=== PATIENT | female | born 1955 | race Caucasian/White ===

== ENCOUNTER 2020-10-18 23:40 | Emergency (ER) | payer MEDICARE, OTHER ==
[2020-10-18] MEDS ORDERED: Sodium Chloride 0.9% 10 ML Syringe FLUSH PRN (23:51)
--- NOTE | 2020-10-18 23:51 | EDM.PDOC ---
ED HPI GENERAL MEDICAL PROBLEM - General Chief Complaint: Abdominal Pain Stated Complaint: RIGHT ABD PAIN Time Seen by Provider: 10/18/20 23:49 Source of Information: Reports: Patient History Limitations: Reports: No Limitations - History of Present Illness INITIAL COMMENTS - FREE TEXT/NARRATIVE: Melonie Melgar is a 65 y/o female that presents ambulatory via triage during the covid pandemic with rlq pain. She notes that approximate 24 hours ago she was at home when awokened with constant and persistent, right lower quadrant abdominal pain. Since then pain has persisted but is better with Tylenol and now mild. pain Has not migrated and is located in the right lower quadrant. She reports feelings of mild malaise and generalized weakness. She had a normal appetite. she has had no fever, headache, runny nose, sore throat, cough, change in taste or smell. No diarrhea. She has not had Covid and she is not Covid vaccinated. Patient reports no urinary symptoms and normal stools. She has had a remote colonoscopy many years ago by her report that was normal. She is not anticoagulated. not on steroids. no chest pain/discomfort. no neck pain. no jaw pain. no back pain. normal stools. no urine sx. pain worse if laying supine/moving/breathing in rlq - Related Data Allergies Allergy/AdvReac Type Severity Reaction Status Date / Time Penicillins Allergy Anaphylactic Verified 10/18/20 23:49 Shock Home Meds: Home Meds Escitalopram [Lexapro] 1 tab PO DAILY 10/18/20 [History] Multivitamin/Iron/Folic Acid [Centrum Women Tablet] 1 tab PO DAILY 10/18/20 [History] Social & Family History - Living Situation & Occupation Social History Comment: in past year. likes to walk. ED ROS GENERAL - Review of Systems Review Of Systems: See Below (Patient does note in 2018 she had "fluid drained" she thinks was from her liver in [place]. denies any history of cancer or paracentesis. All other 10 negative.) Constitutional: Reports: Malaise. Denies: Fever, Chills, Weight Loss HEENT: Reports: No Symptoms Respiratory: Reports: No Symptoms, Wheezing. Denies: Pleuritic Chest Pain, Cough Cardiovascular: Reports: No Symptoms. Denies: Chest Pain, Edema, Palpitations Endocrine: Reports: No Symptoms GI/Abdominal: Reports: Abdominal Pain, Stool Incontinence. Denies: Black Stool, Diarrhea, Distension, Nausea, Vomiting : Reports: No Symptoms. Denies: Flank Pain, Frequency Musculoskeletal: Reports: No Symptoms Skin: Reports: No Symptoms Neurological: Reports: No Symptoms Psychiatric: Reports: No Symptoms Hematologic/Lymphatic: Reports: No Symptoms Immunologic: Reports: No Symptoms ED EXAM, GI/ABD - Physical Exam Exam: See Below Exam Limited By: No Limitations General Appearance: Alert Eyes: Bilateral: Normal Appearance Ears: Hearing Grossly Normal Nose: Normal Inspection Head: Normocephalic Neck: Non-Tender Respiratory/Chest: No Respiratory Distress, Lungs Clear, Normal Breath Sounds, No Accessory Muscle Use. No: Splinting Cardiovascular: Normal Peripheral Pulses, Regular Rate, Rhythm, No JVD, No Murmur, No Rub GI/Abdominal Exam: Normal Bowel Sounds, Soft, No Mass, Tender (rlq near mcburney and right mid quadrant. no ruq pain. neg bird. no rebound. no abd wall rash. no abd hernia. ) (Female) Exam: Other (no flank tenderness) Back Exam: No: Paraspinal Tenderness Extremities: Normal Inspection, Normal Range of Motion, Non-Tender, No Pedal Edema. No: Pedal Edema Neurological: Alert, Oriented, Normal Cognition, Normal Gait, No Motor/Sensory Deficits Psychiatric: Normal Affect Skin Exam: Warm, Dry, Normal Color, No Rash, Other (tanned skin) Lymphatic: No Adenopathy Course - Vital Signs Text/Narrative:: Patient underwent ED history, physical examination. Patient deferred on pain medications noting she took Tylenol at home. Patient has acute right side abdominal pain located McBurney's point. She however has a good appetite, no fever. She has no Covid symptoms. She is not covid vaccinated. Differential is broad and includes appendicitis albeit somewhat atypical presentation with acute onset of pain. Intestinal volvulus, bowel ischemia. Low suspicion for abdominal aortic aneurysm. Low suspicion for pelvic infection. Certainly could be ovarian cyst or hemorrhagic cyst. Atypical presentation of right upper quadrant pathology is a consideration while she has no upper quadrant pain on exam. Doubt this is an intrathoracic process. diverticulitis is possible. no abd rash or hernia on exam. no back or blank pain to suggest renal colic or UTI sx by history. Epiploic appendagitis would clinically fit her presentation. Patient deferred on pain medications. CBC reviewed. Mild leukocytosis. Creatinine 1.5. CT with contrast recommended to further ascertain the cause of her right lower quadrant pain. Patient is normal AST ALT and bilirubin 0035 AM. Patient notes persistent right lower quadrant pain. I reviewed the indication for CT scan and recommend IV hydration after CT scan. Patient voiced understanding. 0055: Patient rechecked. I reviewed the CT scan raw images in the CT suite, my impression: multiple hepatic cystic lesions of various sizes and impressively large septated cystic mass of the right upper quadrant that extends into the right lq. the right kidney is displace medially as a result of this. Patient has been reassessed she does note that in 2018 in [place] she had "fluid drained from her liver" she notes she was told she would "have to live with this". She denies a history of cancer or paracentesis. She denies jaundice. She reports she has gained approximate 5 pounds over a few months and does feel generally distended. 0200: patient resting comfortable. 2nd litre NS infusing. awaiting CT scan results 0503: CT: Abdomen pelvis with IV contrast faxed copy from consulting radiologist. Findings: In the abdomen, the right lobe of the liver has largely been replaced with a dominant cyst measuring 17.9 x 13.0 x 19.9 cm. Several other moderate cysts are present more superior to the dominant cyst measuring up to 8.5 cm in diameter. There are numerous smaller cysts scattered throughout the rest of the liver. The cyst in the right lobe of the liver moderately enlarge liver, which measures up to 25.4 cm in length nearly reaching the superior iliac crest the findings are that of polycystic liver disease. A few calcifications are seen adjacent to the cyst in the superior portion of the right lobe of the liver. There is no sign of any solid hepatic mass. Normal CT of the pelvis with contrast. Inferior and medial displacement of the otherwise normal-appearing right kidney. Reading per Austin Tobias MD 4448: Surgery paged for Consult, Dr. Rojas: Ddx, recommendations/treatment reviewed. No emergent surgical indications at this time. Consider consult at specialty center, ?[facility] ? [place] ? [place]- where patient lives. MDM: Janelle Melgar is a pleasant female presents with 24 hours of acute onset of right lower quadrant pain she reports pain is worse if she lays supine and has been associated with generalized malaise. She has a interesting CT findings as noted above. Patient's white count is normal. Her appetite is normal and her symptoms began acutely making appendicitis possible but much less likely due to the duration of her symptomatology and lack of inflammatory changes but appendix by CT scan. Patient has no signs of hepatic injury by laboratory testing. I have excluded life threats of vascular catastrophe. Her pain is well controlled and not suggestive of it perforated viscus or closed-loop obstruction/volvulus. The etiology of her pain is however unknown. She remotely has had what sounds like hepatic cyst drained approximately 3 years ago in the [place] area and she reports being told at the time that her sister said that she would have to live with. Patient clinically does not have signs of ischemia or emergent life threats. I cannot exclude fully an atypical or early presentation of appendicitis or other inflammatory processes. Patient is done remarkably well in ER with lack of need for pain medications she is pain with rest comfortably with use of Tylenol prior to arrival in the ER. Her abdominal examination serially did not show peritoneal signs and she has ongoing good appetite. 0541: patient rechecked. ED workup and CT/covid test reviewed. patient notes she has plans to return to [place] tomorrow, where she resides for the winter months. 0550: I discussed disposition with the patient. At this time patient would like discharge with a prescription for pain -if needed before she goes to bed. Patient understands the differential which does include atypical or early appendicitis. Patient will return to the emergency department if progressive worsening or not improving next 16-24 hrs for repeat assessment. She may also require transfer to a larger center that has GI capacity/ specialty capacity for the hepatic cyst. Patient voiced understanding of such and would like be to be discharged home at this time. A copy of today's CT results on CD and written paperwork/copy of fax is provided for the patient as she requested for her primary care physician as well. She also considered transfer to [facility] today, and deferred. rx: norco #10 1 po qhs Last Recorded V/S: Last Vital Signs Temp 36.1 C 10/19/20 05:31 Pulse 69 10/19/20 05:31 Resp 16 10/19/20 05:31 BP 106/76 09/07/21 05:31 Pulse Ox 96 10/19/20 05:31 - Orders/Labs/Meds Orders: Active Orders 24 hr Category Date Time Status Sodium Chloride 0.9% [Saline Flush] Med 10/18/20 23:51 Active 10 ml FLUSH ASDIRECTED PRN Saline Lock Insert [OM.PC] Stat Oth 10/18/20 23:51 Ordered Medication Orders Sodium Chloride (Sodium Chloride 0.9% 10 Ml Syringe) 10 ml FLUSH ASDIRECTED PRN PRN Reason: Keep Vein Open Last Admin: 10/19/20 00:23 Dose: 10 ml Documented by: VARGAS Labs: Laboratory Tests 10/18/20 10/18/20 10/19/20 Range/Units 23:59 23:59 00:20 WBC 11.8 H (4.5-11.0) K/uL RBC 4.89 (3.30-5.50) M/uL Hgb 13.8 (12.0-15.0) g/dL Hct 43.4 (36.0-48.0) % MCV 89 (80-98) fL MCH 28 (27-31) pg MCHC 32 (32-36) % Plt Count 221 (150-400) K/uL Neut % (Auto) 67.9 H (36-66) % Lymph % (Auto) 16.5 L (24-44) % White % (Auto) 14.0 H (2-6) % Eos % (Auto) 1.3 L (2-4) % Baso % (Auto) 0.3 (0-1) % Sodium 137 L (140-148) mmol/L Potassium 4.2 (3.6-5.2) mmol/L Chloride 102 (100-108) mmol/L Carbon Dioxide 26 (21-32) mmol/L Anion Gap 13.2 (5.0-14.0) mmol/L BUN 23 H (7-18) mg/dL Creatinine 1.5 H (0.6-1.0) mg/dL Est Cr Clr Drug Dosing 28.78 mL/min Estimated GFR (MDRD) 35 L (>60) Glucose 97 (74-106) mg/dL Calcium 9.0 (8.5-10.1) mg/dL Total Bilirubin 0.4 (0.2-1.0) mg/dL AST 24 (15-37) U/L ALT 44 (12-78) U/L Alkaline Phosphatase 143 H (46-116) U/L Total Protein 7.1 (6.4-8.2) g/dL Albumin 3.5 (3.4-5.0) g/dL Globulin 3.6 H (2.3-3.5) g/dL Albumin/Globulin Ratio 1.0 L (1.2-2.2) Urine Color Yellow (YELLOW) Urine Appearance Clear (CLEAR) Urine pH 5.5 (5.0-8.0) Ur Specific [place] 1.025 (1.008-1.030) Urine Protein Negative (NEGATIVE) mg/dL Urine Glucose (UA) Negative (NEGATIVE) mg/dL Urine Ketones Negative (NEGATIVE) mg/dL Urine Occult Blood Negative (NEGATIVE) Urine Nitrite Negative (NEGATIVE) Urine Bilirubin Negative (NEGATIVE) Urine Urobilinogen 0.2 (0.2-1.0) EU/dL Ur Leukocyte Esterase Trace H (NEGATIVE) Urine RBC 0-5 (0-5) Urine WBC 0-5 (0-5) Ur Epithelial Cells Few Amorphous Sediment Not seen Urine Bacteria Few Urine Mucus Not seen SARS CoV-2 RNA Rapid RHONDA 10/19/20 Range/Units 01:00 WBC (4.5-11.0) K/uL RBC (3.30-5.50) M/uL Hgb (12.0-15.0) g/dL Hct (36.0-48.0) % MCV (80-98) fL MCH (27-31) pg MCHC (32-36) % Plt Count (150-400) K/uL Neut % (Auto) (36-66) % Lymph % (Auto) (24-44) % White % (Auto) (2-6) % Eos % (Auto) (2-4) % Baso % (Auto) (0-1) % Sodium (140-148) mmol/L Potassium (3.6-5.2) mmol/L Chloride (100-108) mmol/L Carbon Dioxide (21-32) mmol/L Anion Gap (5.0-14.0) mmol/L BUN (7-18) mg/dL Creatinine (0.6-1.0) mg/dL Est Cr Clr Drug Dosing mL/min Estimated GFR (MDRD) (>60) Glucose (74-106) mg/dL Calcium (8.5-10.1) mg/dL Total Bilirubin (0.2-1.0) mg/dL AST (15-37) U/L ALT (12-78) U/L Alkaline Phosphatase (46-116) U/L Total Protein (6.4-8.2) g/dL Albumin (3.4-5.0) g/dL Globulin (2.3-3.5) g/dL Albumin/Globulin Ratio (1.2-2.2) Urine Color (YELLOW) Urine Appearance (CLEAR) Urine pH (5.0-8.0) Ur Specific [place] (1.008-1.030) Urine Protein (NEGATIVE) mg/dL Urine Glucose (UA) (NEGATIVE) mg/dL Urine Ketones (NEGATIVE) mg/dL Urine Occult Blood (NEGATIVE) Urine Nitrite (NEGATIVE) Urine Bilirubin (NEGATIVE) Urine Urobilinogen (0.2-1.0) EU/dL Ur Leukocyte Esterase (NEGATIVE) Urine RBC (0-5) Urine WBC (0-5) Ur Epithelial Cells Amorphous Sediment Urine Bacteria Urine Mucus SARS CoV-2 RNA Rapid RHONDA Negative Meds: Medications Generic Name Dose Route Start Last Admin Trade Name Freq PRN Reason Stop Dose Admin Sodium Chloride 10 ml 10/18/20 23:51 10/19/20 00:23 Sodium Chloride 0.9% 10 Ml Syringe FLUSH 10 ml ASDIRECTED PRN Administration Keep Vein Open Discontinued Medications Generic Name Dose Route Start Last Admin Trade Name Freq PRN Reason Stop Dose Admin Sodium Chloride 1,000 mls @ 500 mls/hr 10/19/20 00:15 Normal Saline IV ASDIRECTED JAMAL Sodium Chloride 1,000 mls @ 1,000 mls/hr 10/19/20 00:20 10/19/20 00:22 Normal Saline IV 10/19/20 01:19 1,000 mls/hr ONETIME ONE Administration Sodium Chloride 75 mls @ 3 mls/sec 10/19/20 00:21 10/19/20 00:41 Normal Saline IV 10/19/20 00:22 3 mls/sec ASDIRECTED STA Administration Sodium Chloride 1,000 mls @ 999 mls/hr 10/19/20 01:39 10/19/20 01:47 Normal Saline IV 10/19/20 02:39 999 mls/hr ONETIME ONE Administration Iopamidol 117 ml 10/19/20 00:20 10/19/20 00:40 Iopamidol 612 Mg/Ml 150 Ml Bottle IV 10/19/20 00:21 117 ml . DIRECTED STA Administration Departure - Departure Time of Disposition: 05:54 Disposition: Home, Self-Care 01 Condition: Fair Clinical Impression: Abnormal CT of liver, Abdominal pain, Renal insufficiency, Lab test negative for COVID-19 virus, Hepatic cyst, Polycystic liver disease - Discharge Information *PRESCRIPTION DRUG MONITORING PROGRAM REVIEWED*: No *COPY OF PRESCRIPTION DRUG MONITORING REPORT IN PATIENT ANASTASIIA: No Instructions: Abdominal Pain, Adult, [id number] Referrals: PCP,None [Primary Care Provider] - 1 Day Forms: ED Department Discharge Additional Instructions: The cause of your abdominal pain is likely from your hepatic cysts or cyst rupture. Atypical presentation of appendicitis is also possible but less likely. Please return to the emergency department if you have uncontrolled pain, temperature above 100.4, vomiting or loss of appetite, or if you reconsider transfer (further evaluation). Recommend recheck in 16 to 24 hours. A copy of your CT scan on CD and copy of the written CT report has also been provided today. Your Covid test today was negative. Long-term you would benefit from aspiration of the large liver cyst or surgical intervention/GI consult. Please discuss this with your MD in follow up. Thank you for trusting us with your care today. Do not drive or drink alcohol with the prescription pain medications. Use stool softener to prevent constipation See attached prescription for [place]. Sepsis Event Note (ED) - Focused Exam Vital Signs: Vital Signs Temp Pulse Resp BP Pulse Ox 10/19/20 05:31 36.1 C 69 16 106/76 96 10/19/20 01:50 65 18 126/78 100 10/18/20 23:50 36.1 C 74 18 129/83 95 - My Orders Last 24 Hours: My Active Orders 10/18/20 23:51 Sodium Chloride 0.9% [Saline Flush] 10 ml FLUSH ASDIRECTED PRN Saline Lock Insert [OM.PC] Stat - Assessment/Plan Last 24 Hours: My Active Orders 10/18/20 23:51 Sodium Chloride 0.9% [Saline Flush] 10 ml FLUSH ASDIRECTED PRN Saline Lock Insert [OM.PC] Stat
[2020-10-19] MEDS ORDERED: Sodium Chloride 0.9% 1,000 ML IV SCH (00:15)
[2020-10-19] MEDS ORDERED: Sodium Chloride 0.9% 1,000 ML IV ONE ×2 (00:20→01:39)
[2020-10-19] MEDS ORDERED: Iopamidol 612 MG/ML 150 ML Bottle IV STA (00:20)
[2020-10-19] MEDS ORDERED: Sodium Chloride 0.9% 75 ML IV STA (00:21)
--- NOTE | 2020-10-19 01:53 | CRLCT ---
For Patients: As a result of the Century Cures Act, medical imaging exams and procedure reports are released immediately into your electronic medical record. You may view this report before your referring provider. If you have questions, please contact your health care provider. INDICATION: Right lower quadrant pain for 24 hours. Previous history of pacemaker for bladder control. COMPARISON: None available TECHNIQUE: CT examination of the abdomen and pelvis was performed with the uneventful intravenous administration of 117 cc of Isovue-300 while 3 mm thick axial sections were obtained from the lung bases through the pubic symphysis. Oral contrast was not administered. Please note that all CT scans at this facility use dose modulation, iterative reconstruction, and/or weight-based dosing when appropriate to reduce radiation dose to as low as reasonably achievable. FINDINGS: In the abdomen, the right lobe of the liver has been largely replaced with a dominant cyst measuring 17.9 x 13.0 x 19.9 centimeters. Several other moderate-sized cysts are present more superior to the dominant cyst, measuring up to 8.5 centimeters in diameter. There are numerous smaller cysts scattered throughout the rest of the liver. The cysts in the right lobe of the liver moderately enlarge liver, which measures 25.4 centimeters in length, nearly reaching the superior iliac crest. The findings are that of polycystic liver disease. A few calcifications are seen adjacent to the cysts in the superior portion of the right lobe of the liver. There is no sign of any solid hepatic mass. The spleen, pancreas, and adrenals are normal in appearance. The right kidney is displaced medially and inferiorly by the cysts in the right lobe of the liver. The kidneys are otherwise normal in appearance. The gallbladder is normal in appearance. The abdominal aorta is normal in caliber with no sign of dilatation. There is no sign of retroperitoneal mass or adenopathy. The stomach, loops of small bowel, and colon in the abdomen are normal in appearance. In the pelvis, the appendix is nonvisualized, but there is no sign of an inflammatory process in the area of the appendix. The loops of small bowel and colon in the pelvis are normal in appearance. The uterus and adnexal regions are normal in appearance. The urinary bladder is normal in appearance. There is no sign of pelvic or inguinal mass or adenopathy. There is no sign of free air or free fluid in the abdomen or pelvis. The lung bases are clear. There is moderate L2-3 disc degenerative disease. IMPRESSION: CT of the abdomen shows moderate enlargement of the right lobe of the liver by multiple cysts, with a dominant cyst measuring up to 19.9 centimeters in length. Numerous smaller cysts scattered throughout the rest of the liver, findings of polycystic liver disease. Inferior and medial displacement of the otherwise normal-appearing right kidney. Normal CT of the pelvis with contrast. Please note that all CT scans at this facility use dose modulation, iterative reconstruction, and/or weight-based dosing when appropriate to reduce radiation dose to as low as reasonably achievable. Dictated by Austin Tobias MD @ 10/19/2020 1:51:34 AM (Electronically Signed)
== END 2020-10-19 06:10 | disposition home or self-care (01) ==
LOC: JP.ED 23:40
DX: N28.9 Disorder of kidney and ureter, unspecified (principal); Q44.6 Cystic disease of liver; R93.2 Abnormal findings on diagnostic imaging of liver and biliary tract; Z88.0 Allergy status to penicillin; Z20.822 Contact with and (suspected) exposure to COVID-19
CPT/HCPCS: 36415; 74177; 80053; 81001; 85025; 99284; J7030; J7050; Q9967; U0002